=== PATIENT | female | born 1990 | race Caucasian/White ===

== ENCOUNTER 2016-12-24 07:18 | Emergency (ER) | payer OTHER ==
[~2016-12-24] VITALS: Ht 172.7 cm; Wt 79.5 kg
[2016-12-24 07:22] VITALS: BP 132/84; PULSE 69; RESP 12; O2SAT 100
[2016-12-24] MEDS ORDERED: Tetracaine 0.5% 4 mL Ophthalmic Solution ONE (07:29)
--- NOTE | 2016-12-24 07:39 | ED.REPORT ---
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 She states that she rinsed her eye out initially in the sink immediately after the incident, then at an eye wash station. Associated symptoms include mild blurred vision in the left eye, and headache. Nursing Notes Stated Complaint: BLEACH IN EYE/WORK RELATED Chief Complaint: Eye Nursing Notes Reviewed: Yes General Time Seen by MD: 07:30 Chief Complaint Left eye affected Hx Obtained From: Patient Arrived By: Walk-in Sudden in Onset?: No Onset Occurred: Just prior to arrival Symptom Duration: Since onset Caused by: Exposure, chemical (Bleach) Context: Occurred at: Workplace Location: : Eye left Quality: Painful Severity: Current: Moderate Severity: Maximum: Moderate Pertinent Negative: Pt denies other symptoms Similar Sx Previous: No Risk-Eye Problem Eye Injury Risk Stratification Exposure, chemical RF Statements: Risk factors reviewed Past Medical History Past Medical History Healthy Smoking History Unknown if Ever Smoker Social History Other Social History: Good social support Ambulatory Status Independent Review of Systems Constitutional: Denies: Chills, Fever Eyes: Reports: Blurred left, Eye pain left, Denies: Discharge left, Photophobia, Visual loss bilateral Neurologic: Reports: Headache Complete sys rev & neg: except as marked. Physical Exam Initial Vital Signs Vital Signs (First) Date Time Temp Pulse Resp B/P Pulse Ox O2 Delivery O2 Flow Rate FiO2 12/24/16 07:22 36.8 69 12 132/84 100 Room Air Initial VS: Reviewed General / Const: Well-developed, Well-nourished Neck: Supple, Non-tender, Full range of motion Extremities: Vascular intact, Neuro intact, No swelling, No tenderness Skin: Warm, Dry, No cyanosis Neurologic: Alert, Oriented, Nonfocal Head / Eyes: Normocephalic, PERRL, EOMI Pupils: Negative: Photophobia L, Photophobia R Vision slightly blurred in the left eye. After Jimmie lens application and rinsing, left sclera is injected. Respiratory / Chest: Breath sounds NL, No respiratory distress, No rales, No rhonchi, No wheezing Rales / Rhonchi: Positive: Rales L base, Rales L up to 1/3, Rales bilateral bases, Rales bilateral up to 1/3 Cardiovascular: Heart rate NL, Regular rhythm, Heart sounds NL, No gallop, No murmurs, No rubs, Peripheral circulation NL Re-Eval/Medical Decision Re-Evaluation/Progress #1: Time of Eval: 07:52 Re-Evaluation/Progress Note: Jimmie lense applied, 50cc wash. Symptoms improved. pH testing of eye indicates pH of 7.0 Discussed physical examination findings and plan to discharge. Patient is amenable to the plan. Return precautions given. All other questions addressed. Re-Evaluation/Progress #2: Time of Eval: 08:15 Re-Evaluation/Progress Note: Symptoms are improved. Counseled Regarding: Diagnosis, Need for follow-up, When/why to return to ED Discharge & Departure Primary Impression: Chemical burn of eye or adnexa Disposition: Home Discharge Condition All VS Reviewed: Yes Condition: Stable Patient Instructions: Chemical Eye Martinez (DC) Additional Instructions: Refer to the Up To Date information on chemical eye injury. Scribe Attestation Portions of this note were transcribed by Issa Valle. I, Dr. Foster, personally performed the history, physical exam and medical decision-making; I reviewed and confirmed the accuracy of the information in the transcribed note. Signed by: Josiah Chaney, 12/24/2016 and 08:15 Lianet Foster MD Dec 24, 2016 07:39 ISSA VALLE Dec 24, 2016 07:47
[2016-12-24] MEDS ORDERED: Tetracaine 0.5% 4 mL Ophthalmic Solution LEFT_EYE ONE (07:40)
== END 2016-12-24 08:46 | disposition home or self-care (01) ==
LOC: SED 07:18
DX: T26.42XA Burn of left eye and adnexa, part unspecified, initial encounter (principal); T54.91XA Toxic effect of unspecified corrosive substance, accidental (unintentional), initial encounter; T31.0 Burns involving less than 10% of body surface; X58.XXXA Exposure to other specified factors, initial encounter; Y93.89 Activity, other specified; Y99.0 Civilian activity done for income or pay; Y92.9 Unspecified place or not applicable